=== PATIENT | male | born 1985 | race Caucasian/White ===

== ENCOUNTER 2022-12-17 09:27 | Emergency (ER) | payer OTHER ==
[~2022-12-17] VITALS: Ht 165.1 cm; Wt 63.1 kg
[2022-12-17] MEDS ORDERED: CITA10TA7 PO (09:41)
[2022-12-17 12:17] VITALS: BP 130/80; TEMP 97.4; O2SAT 100
== END 2022-12-17 12:18 | disposition home or self-care (01) ==
LOC: M ED 09:27
DX: T18.128A Food in esophagus causing other injury, initial encounter (principal); Y92.89 Other specified places as the place of occurrence of the external cause; Z88.0 Allergy status to penicillin